=== PATIENT | male | born 1945 | race Two or more races ===

== ENCOUNTER 2017-05-03 11:15 | Emergency (ER) | payer OTHER ==
[2017-05-03 11:35] VITALS: TEMP 98
[2017-05-03 12:00] LABS: ADD DIFF? NO; ADD MORPH? NO; ADD SCAN? NO; ATYPICAL LYMPHOCYTE FLAG 0 (0-99); FRAGMENT RBC FLAG 0 (0-99); HEMATOCRIT 42.2 % (40.0-51.0); HEMOGLOBIN 15.3 g/dL (13.7-17.5); LEFT SHIFT FLG 0 (0-99); LIPEMIA HEMOLYSIS FLAG 90 (0-99); MEAN CELL HEMOGLOBIN 32.9 pg (27.9-34.1); MEAN CELL HEMOGLOBIN CONCENTR. 36.3 g/dL (32.4-36.7); MEAN CELL VOLUME 90.8 fL (81.5-99.8); MEAN PLATELET VOLUME 9.1 fL (8.7-11.7); PLATELET CLUMPS FLAG 10 (0-99); PLATELET COUNT 155 10^3/uL (150-400); RED BLOOD CELL COUNT 4.65 10^6/uL (4.40-6.38); RED CELL DISTRIBUTION WIDTH 12.4 % (11.5-15.2)
[2017-05-03 12:16] LABS: ANION GAP 11 mEq/L (8-16); CARBON DIOXIDE 25 mEq/l (22-31); CHLORIDE 104 mEq/L (97-110); GLOMERULAR FILTRATION RATE > 60; GLUCOSE 128 mg/dL (70-100); SODIUM 140 mEq/L (134-144)
--- NOTE | 2017-05-03 12:34 | EDPHY ---
H & P Time Seen by Provider: 05/03/17 11:34 HPI/ROS: This patient presents with facial redness and discomfort over the past 5 days. His recent history is notable for surgical excision of the skin lesion to the right face between zygoma and zoroastrianism region by a poultry eviscerator without complications that time. He reports that over the past 2 days the redness has spread further down toward his cheek. He was initially seen in the urgent care and sent here with concern he might warrant IV antibiotics. Other than the redness and local discomfort the patient has no other associated symptoms. ROS: Constitutional: No fevers or chills. No significant fatigue. HEENT: No sinus pressure or pain. No nasal congestion. No ear pain. No weeping drainage from the area. Ophtho: No eye symptoms. Pulmonary: No complaints selling Cardiovascular: No lightheadedness GI: No nausea vomiting 7 point ROS is otherwise negative. Past Medical/Surgical History: Hypertension GERD Otherwise healthy Smoking Status: Never smoked Physical Exam: General Appearance: Alert, no distress. Eyes: Pupils equal and round no pallor or injection. Extraocular motions are intact ENT, Mouth: Mucous membranes moist. Respiratory: No respiratory distress Cardiovascular: Capillary refill intact throughout Neurological: GCS 15 without focal deficits. Cranial nerves 2-12 grossly intact Skin: The patient has a 10 by 10 area of erythema to the right face overlying the zoroastrianism and zygoma region with slight warmth to touch. In the center this is a partially healed wound without fluctuance or discharge. There is no surrounding edema. There is no orbital or periorbital involvement. Musculoskeletal: Neck is supple nontender. Extremities are symmetrical, full range of motion. Psychiatric: Mood and affect are normal DIFFERENTIAL DIAGNOSIS: After history and physical exam differential diagnosis was considered for wound infection with cellulitis, MR MAST, allergic reaction Constitutional: Initial Vital Signs Temperature (C) 36.6 C 05/03/17 11:33 Heart Rate 67 05/03/17 11:33 Respiratory Rate 18 05/03/17 11:33 Blood Pressure 130/79 H 05/03/17 11:33 O2 Sat (%) 97 05/03/17 11:33 O2 Delivery Mode Room Air Allergies/Adverse Reactions: naproxen [From Naprosyn] Allergy (Verified 05/03/17 11:28) Home Medications: Medication Instructions Recorded Amlodipine Besylate 05/03/17 Atorvastatin Calcium 05/03/17 Diovan Hct 160-12.5 mg Tab 05/03/17 Doxycycline Hyclate [Vibramycin 100 mg PO BID #20 cap 05/03/17 100 MG (*)] PRILOSEC 05/03/17 MDM/Departure - MDM Diagnostics: CBC is normal. Basic metabolic panel normal except for minimally elevated glucose to 120 a Medications Given: Discontinued Medications Ceftriaxone Sodium 1 gm/ (Sodium Chloride) 100 mls @ 200 mls/hr IV EDNOW ONE PRN Reason: Protocol Stop: 05/03/17 12:13 Last Admin: 05/03/17 12:10 Dose: 100 mls ED Course/Re-evaluation: IV Rocephin 1 g I counseled the patient regarding facial cellulitis Patient appears nontoxic without evidence of sinus infection, BUILDING COORDINATOR infection or other complicating factors. Given lack of fever and normal white count, will hold on further parenteral antibiotics and start the patient on doxycycline. I counseled regarding this. He will follow up with Dermatology. For any ongoing symptoms of follow up with Dr. Brown Gonzalez [facility]. Patient understands the plan. I answered his questions prior to discharge he is comfortable at the time of discharge. - Depart Disposition: Home, Routine, Self-Care Clinical Impression: Facial cellulitis Condition: Good Instructions: Doxycycline (By mouth), Cellulitis (ED) Additional Instructions: Diagnosis: Facial cellulitis from facial wound. Plan: Apply warm packs to the area 2 times a day until symptoms resolve Clean the area daily with warm soapy water Take the doxycycline antibiotic as prescribed Eat yogurt or take a probiotic or both while on doxycycline to prevent diarrhea Protector skin from the son while on this antibiotic as it will make you more prone to sunburn. Follow up with Dr. Brown Gonzalez, infectious disease specialist if you have any ongoing symptoms despite the treatment plan Return for any significant worsening despite the treatment plan Prescriptions: Doxycycline Hyclate [Vibramycin 100 MG (*)] 100 mg PO BID #20 cap Referrals: Mauricio Carr MD [Primary Care Provider] - As per Instructions Brown Gonzalez MD [Medical Doctor] - As per Instructions
[2017-05-03 12:55] VITALS: BP 109/67; PULSE 57; RESP 16; O2SAT 96
== END 2017-05-03 12:45 | disposition home or self-care (01) ==
LOC: CED 11:15
DX: L03.211 Cellulitis of face (principal); I10 Essential (primary) hypertension
CPT/HCPCS: 96365; 99284; J0696; 80048-PO; 85025-PO